=== PATIENT | female | born 1995 | race Caucasian/White ===

== ENCOUNTER 2017-06-01 15:08 | Emergency (ER) | payer OTHER ==
[2017-06-01 15:13] VITALS: BP 129/80; PULSE 88; RESP 16; TEMP 97.9; O2SAT 97
--- NOTE | 2017-06-01 15:51 | EDPHY ---
H & P Time Seen by Provider: 06/01/17 15:42 HPI/ROS: CHIEF COMPLAINT: Right hand pain after punching wall HISTORY OF PRESENT ILLNESS: 21-year-old [id number] female in the ER via private vehicle complaining of acute right hand pain after she punched a door 4 days ago. Complaining of soft tissue swelling. Denies punching a person or impacting individuals mouth. No discoloration. PHYSICAL EXAM (Prior to examination, patient consented to physical exam, hands were washed and my usual and customary physical exam procedures followed) 1) GENERAL: Well-developed, well-nourished, alert and oriented. Appears to be in no acute distress. 2) HEAD: Normocephalic 3) HEENT: Pupils equal, round, reactive to light bilaterally. 4) LUNGS: Breathing comfortably. 5) MUSCULOSKELETAL: Soft tissue swelling to the dorsum of the hand with well granulating abrasions and no signs of infection. Tender to palpation 4th and 5th metacarpal. No deformity no angulation. Normal cascading of digits. Soft compartments. Normal coloration. 6) SKIN: multiple well granulating abrasions with no signs of infection 7) VASCULAR: pulses and cap refill present are brisk 8) NEUROLOGIC: Radial, ulnar, median nerve function intact with no deficits appreciated on exam DIFFERENTIAL DIAGNOSIS: in no particular order including but not limited to fracture, sprain, compartment syndrome Procedure: Splint ulnar gutter Ortho Glass splint was applied by ER loader technician. After application of the splint I returned and re-examined the patient. The splint was adequately immobilizing the joint and distal to the splint the patient's circulation and sensation were intact. Patient shows no signs of compartment syndrome. Was given orthopedic precautions. Smoking Status: Current every day smoker Constitutional: Initial Vital Signs Temperature (C) 36.6 C 06/01/17 15:09 Heart Rate 88 06/01/17 15:09 Respiratory Rate 16 06/01/17 15:09 Blood Pressure 129/80 H 06/01/17 15:09 O2 Sat (%) 97 06/01/17 15:09 O2 Delivery Mode Room Air Allergies/Adverse Reactions: No Known Allergies Allergy (Unverified 06/01/17 15:13) Home Medications: Medication Instructions Recorded Cyclobenzaprine [Flexeril 10 MG 10 mg PO 06/01/17 (*)] Meloxicam [Mobic 7.5 mg] 7.5 mg PO 06/01/17 MDM/Departure - [facility] ED Course/Re-evaluation: Patient has been informed that occult fracture not ruled out. She has been splinted, given usual and customary orthopedic precautions and instructions and follow up with Hand surgery. Care of patient under supervision of secondary supervising physician Dr Pink . - Depart Disposition: Home, Routine, Self-Care Clinical Impression: Right hand pain Condition: Good Instructions: Hand Sprain (ED) Additional Instructions: Return to the ER immediately if you experience discoloration, have worsening pain, numbness, tingling, or any other symptoms that concern you. If you received x-rays in the emergency department today, be advised, that ligamentous , tendon, muscular, and other non-bony injury cannot be fully ruled out. Try to keep your affected extremity elevated above the level of your chest, and keep cold packs on the affected area Referrals: Rashad Michele MD [Medical Doctor] - 2-3 days, call for appt.
--- NOTE | 2017-06-01 15:51 | EDPHY ---
H & P Time Seen by Provider: 06/01/17 15:42 HPI/ROS: CHIEF COMPLAINT: Right hand pain after punching wall HISTORY OF PRESENT ILLNESS: 21-year-old [id number] female in the ER via private vehicle complaining of acute right hand pain after she punched a door 4 days ago. Complaining of soft tissue swelling. Denies punching a person or impacting individuals mouth. No discoloration. PHYSICAL EXAM (Prior to examination, patient consented to physical exam, hands were washed and my usual and customary physical exam procedures followed) 1) GENERAL: Well-developed, well-nourished, alert and oriented. Appears to be in no acute distress. 2) HEAD: Normocephalic 3) HEENT: Pupils equal, round, reactive to light bilaterally. 4) LUNGS: Breathing comfortably. 5) MUSCULOSKELETAL: Soft tissue swelling to the dorsum of the hand with well granulating abrasions and no signs of infection. Tender to palpation 4th and 5th metacarpal. No deformity no angulation. Normal cascading of digits. Soft compartments. Normal coloration. 6) SKIN: multiple well granulating abrasions with no signs of infection 7) VASCULAR: pulses and cap refill present are brisk 8) NEUROLOGIC: Radial, ulnar, median nerve function intact with no deficits appreciated on exam DIFFERENTIAL DIAGNOSIS: in no particular order including but not limited to fracture, sprain, compartment syndrome Procedure: Splint ulnar gutter Ortho Glass splint was applied by ER quality assurance qa lab technician. After application of the splint I returned and re-examined the patient. The splint was adequately immobilizing the joint and distal to the splint the patient's circulation and sensation were intact. Patient shows no signs of compartment syndrome. Was given orthopedic precautions. Smoking Status: Current every day smoker Constitutional: Initial Vital Signs Temperature (C) 36.6 C 06/01/17 15:09 Heart Rate 88 06/01/17 15:09 Respiratory Rate 16 06/01/17 15:09 Blood Pressure 129/80 H 06/01/17 15:09 O2 Sat (%) 97 06/01/17 15:09 O2 Delivery Mode Room Air Allergies/Adverse Reactions: No Known Allergies Allergy (Unverified 06/01/17 15:13) Home Medications: Medication Instructions Recorded Cyclobenzaprine [Flexeril 10 MG 10 mg PO 06/01/17 (*)] Meloxicam [Mobic 7.5 mg] 7.5 mg PO 06/01/17 MDM/Departure - [facility] ED Course/Re-evaluation: Patient has been informed that occult fracture not ruled out. She has been splinted, given usual and customary orthopedic precautions and instructions and follow up with Hand surgery. Care of patient under supervision of secondary supervising physician Dr Pink . - Depart Disposition: Home, Routine, Self-Care Clinical Impression: Right hand pain Condition: Good Instructions: Hand Sprain (ED) Additional Instructions: Return to the ER immediately if you experience discoloration, have worsening pain, numbness, tingling, or any other symptoms that concern you. If you received x-rays in the emergency department today, be advised, that ligamentous , tendon, muscular, and other non-bony injury cannot be fully ruled out. Try to keep your affected extremity elevated above the level of your chest, and keep cold packs on the affected area Referrals: Rashad Michele MD [Medical Doctor] - 2-3 days, call for appt.
--- NOTE | 2017-06-01 15:51 | EDPHY ---
H & P Time Seen by Provider: 06/01/17 15:42 HPI/ROS: CHIEF COMPLAINT: Right hand pain after punching wall HISTORY OF PRESENT ILLNESS: 21-year-old [id number] female in the ER via private vehicle complaining of acute right hand pain after she punched a door 4 days ago. Complaining of soft tissue swelling. Denies punching a person or impacting individuals mouth. No discoloration. PHYSICAL EXAM (Prior to examination, patient consented to physical exam, hands were washed and my usual and customary physical exam procedures followed) 1) GENERAL: Well-developed, well-nourished, alert and oriented. Appears to be in no acute distress. 2) HEAD: Normocephalic 3) HEENT: Pupils equal, round, reactive to light bilaterally. 4) LUNGS: Breathing comfortably. 5) MUSCULOSKELETAL: Soft tissue swelling to the dorsum of the hand with well granulating abrasions and no signs of infection. Tender to palpation 4th and 5th metacarpal. No deformity no angulation. Normal cascading of digits. Soft compartments. Normal coloration. 6) SKIN: multiple well granulating abrasions with no signs of infection 7) VASCULAR: pulses and cap refill present are brisk 8) NEUROLOGIC: Radial, ulnar, median nerve function intact with no deficits appreciated on exam DIFFERENTIAL DIAGNOSIS: in no particular order including but not limited to fracture, sprain, compartment syndrome Procedure: Splint ulnar gutter Ortho Glass splint was applied by ER audio visual technician. After application of the splint I returned and re-examined the patient. The splint was adequately immobilizing the joint and distal to the splint the patient's circulation and sensation were intact. Patient shows no signs of compartment syndrome. Was given orthopedic precautions. Smoking Status: Current every day smoker Constitutional: Initial Vital Signs Temperature (C) 36.6 C 06/01/17 15:09 Heart Rate 88 06/01/17 15:09 Respiratory Rate 16 06/01/17 15:09 Blood Pressure 129/80 H 06/01/17 15:09 O2 Sat (%) 97 06/01/17 15:09 O2 Delivery Mode Room Air Allergies/Adverse Reactions: No Known Allergies Allergy (Unverified 06/01/17 15:13) Home Medications: Medication Instructions Recorded Cyclobenzaprine [Flexeril 10 MG 10 mg PO 06/01/17 (*)] Meloxicam [Mobic 7.5 mg] 7.5 mg PO 06/01/17 MDM/Departure - [facility] ED Course/Re-evaluation: Patient has been informed that occult fracture not ruled out. She has been splinted, given usual and customary orthopedic precautions and instructions and follow up with Hand surgery. Care of patient under supervision of secondary supervising physician Dr Pink . - Depart Disposition: Home, Routine, Self-Care Clinical Impression: Right hand pain Condition: Good Instructions: Hand Sprain (ED) Additional Instructions: Return to the ER immediately if you experience discoloration, have worsening pain, numbness, tingling, or any other symptoms that concern you. If you received x-rays in the emergency department today, be advised, that ligamentous , tendon, muscular, and other non-bony injury cannot be fully ruled out. Try to keep your affected extremity elevated above the level of your chest, and keep cold packs on the affected area Referrals: Rashad Michele MD [Medical Doctor] - 2-3 days, call for appt.
== END 2017-06-01 16:05 | disposition home or self-care (01) ==
DX: S69.91XA Unspecified injury of right wrist, hand and finger(s), initial encounter (principal); F17.200 Nicotine dependence, unspecified, uncomplicated; W22.8XXA Striking against or struck by other objects, initial encounter

== ENCOUNTER 2018-08-19 15:02 | Emergency (ER) | payer OTHER ==
[2018-08-19 15:07] VITALS: BP 125/89
--- NOTE | 2018-08-19 15:20 | EDPHY ---
General Time Seen by Provider: 08/19/18 15:18 Narrative: CLINICAL IMPRESSION: RIGHT KNEE STRAIN ASSESSMENT/PLAN: 23-year-old female presents to the emergency department with complaints of right knee pain after falling while skiing today. Patient has no obvious deformity, distal neurovascular exam is intact, symmetric color and temperature , no radiologic findings to suggest underlying fracture. She has pain with vargus stressing of the knee. No anterior drawer laxity. Suspect ligamentous injury versus meniscus injury. Encouraged her to follow up with Orthopedics and referral was given. [id number] analgesics recommended. Warning signs return to ED sooner alignment discharge. DIFFERENTIAL DX: Differential includes but not limited to acute fracture, strain/sprain, joint dislocation, soft tissue contusion ED PROCEDURES: Procedure: Splint placement. Crutches applied to the patient. After application of the splint I returned and re-examined the patient. ED COURSE: I reviewed patient's x-rays and I see no evidence of fracture or dislocation CHIEF COMPLAINT: Right leg pain after injury from skiing HPI: 23-year-old female presents to the emergency department with acute right knee pain after falling while skiing today. Patient was able [place] the [place]. She did not hit her head. No prior knee injury or surgery. No loss of sensation to the knee. No ankle or hip pain. She is otherwise healthy PAST MEDICAL HISTORY: None reported Pertinent Past Surgical History: No prior Ortho surgery Social History: Otherwise healthy REVIEW OF SYSTEMS: All other systems negative Constitutional: No fever, no chills Musculoskeletal: No deformity, + joint pain Skin: No rashes, color change or open wounds. Neurological: No sensory loss or weakness. PHYSICAL EXAM: General Appearance: Alert, oriented, appropriate for age, cooperative, NAD, well hydrated, non-toxic appearing, VSS, no hypoxia. Neurological: Alert and oriented x 3, normal sensation and strength of extremities Skin: Warm, dry, no rashes, no nodules on palpation. Musculoskeletal: Right knee pain to palpation primarily along the lateral aspect of the knee. No laxity with anterior drawer testing. Pain noted with vargus stressing. Normal exam of the right ankle and hip. No tib-fib or femur pain. Distal neurovascular exam intact. MEDICAL DECISION MAKING: Patient was seen independently. Secondary supervising physician at time of evaluation was Dr. Teresa. Diagnosis: Right knee sprain. New, requires workup Summary: See assessment and plan for summary of ED visit Independent visualization of images, tracing, or specimens yes. Decision to obtain medical records or history from someone other than the patient: No Review / Summarize previous medical records: None available Discussed patient with another provider: No Patient Progress: Improved. - History Smoking Status: Former smoker - Objective Vital Signs: Initial Vital Signs Temperature (C) 36.7 C 08/19/18 15:05 Heart Rate 70 08/19/18 15:05 Respiratory Rate 16 08/19/18 15:05 Blood Pressure 125/89 H 08/19/18 15:05 O2 Sat (%) 96 08/19/18 15:05 O2 Delivery Mode Room Air Allergies/Adverse Reactions: No Known Allergies Allergy (Unverified 06/01/17 15:13) Home Medications: Medication Instructions Recorded NK [No Known Home Meds] 08/19/18 Departure - Departure Disposition: Home, Routine, Self-Care Clinical Impression: Strain of right knee Condition: Good Instructions: Knee Pain (ED) Additional Instructions: DISCHARGE INSTRUCTIONS FROM YOUR DOCTOR Thank you for visiting our emergency department today. Please keep in mind that discharge from the emergency department does not mean that there is nothing wrong - it simply means that we have not identified an emergency condition that requires further evaluation or treatment in the hospital. You should always plan to follow up with primary care for re-evaluation of your condition in the next 2-3 days. If you have been referred to a specialist, please call as soon as possible (today or tomorrow) to schedule your follow up appointment at the appropriate time. X-RAYS OF HER KNEE SHOW NO EVIDENCE OF FRACTURE. YOU MAY HAVE SUSTAINED A LIGAMENTOUS INJURY OR MENISCUS INJURY. WE DO NOT PERFORM MRIS IN THE EMERGENCY DEPARTMENT. REST AND ELEVATE THE AFFECTED EXTREMITY MUCH POSSIBLE. ICE THE AFFECTED AREAS 20 MIN ON, 20 MIN OFF FOR THE NEXT SEVERAL DAYS. PLEASE USE TYLENOL OR IBUPROFEN OVER THE COUNTER IN APPROPRIATE DOSES OUTLINED ON YOUR DISCHARGE PAPERS. TAKE IBUPROFEN WITH FOOD AND A LARGE GLASS OF WATER. FOLLOW- UP WITH ORTHOPEDICS IF HER PAIN IS PERSISTENT, OR WORSENING. RETURN TO THE ED FOR SEVERE PAIN, INABILITY TO WALK, FEVER, LOSS OF SENSATION TO THE LEG OR FOR OR ANY OTHER CONCERNS. People present with illnesses and injuries in different ways, and it is always possible that we have missed something. You may always return for re-evaluation if symptoms worsen or if they are not improving or if you develop new/different symptoms. Again, thank you for choosing our emergency department. We hope that you feel better. Referrals: NONE *PRIMARY CARE P,. [Primary Care Provider] - As per Instructions Ja Schmitz MD [Medical Doctor] - 2-3 days, if not improved
== END 2018-08-19 16:00 | disposition home or self-care (01) ==
DX: S83.91XA Sprain of unspecified site of right knee, initial encounter (principal); V00.321A Fall from snow-skis, initial encounter; Y93.23 Activity, snow (alpine) (downhill) skiing, snowboarding, sledding, tobogganing and snow tubing; Y99.9 Unspecified external cause status; Y92.838 Other recreation area as the place of occurrence of the external cause